=== PATIENT | male | born 1975 | race Caucasian/White ===

== ENCOUNTER 2021-04-27 09:45 | Emergency (ER) | payer OTHER, SELFPAY ==
[2021-04-27 09:46] VITALS: BP 148/97; PULSE 74; RESP 20; TEMP 36.9; O2SAT 99; BMI 29.0
--- NOTE | 2021-04-27 09:56 | CT_ITS ---
STUDY: CT BRAIN WITHOUT CONTRAST REASON FOR EXAM: Male, 46 years old. Head injury with laceration to the right side. Loss of consciousness. RADIATION DOSAGE (If Supplied By Facility): CTDIvol = ( 44.99 ) mGy, DLP = ( 796.11 ) mGycm TECHNIQUE: Transaxial CT imaging of the brain was performed without administration of intravenous contrast material. Individualized dose optimization techniques were used for this CT. COMPARISON: No relevant priors. FINDINGS: Scalp hematoma overlying the right parietal bone. Normal calvarium. Normal size ventricles and extra-axial spaces for the patient''s age. Normal white matter tracts of the cerebral hemispheres. Normal basal ganglia and thalami. Normal brainstem. Normal cerebellum. There is no intracranial hemorrhage. There are no findings of an acute ischemic infarction. Small air-fluid level in the right maxillary sinus. Partial opacification of the ethmoid sinus and the left sphenoid sinus. CT/Brain/Head without Contrast IMPRESSION: Scalp hematoma overlying the right parietal bone. Sinusitis. Electronically Signed: Daniel Valle MD at 10:34 EST , Service support ,
--- NOTE | 2021-04-27 09:57 | EX.ED.GENINJ ---
HPI History of Present Illness Chief Complaint: Head Injury Detail of Chief Complaint: That occurred approximately 7:10 AM Informant: patient Narrative Narrative: Patient presents to the emergency department via EMS with a head injury that occurred about 7:10 AM. Patient states that he was working under a semitrailer and when he was coming from underneath the trailer he raised up too quickly and struck his head on the edge of the trailer causing a laceration and thinks that he may have been knocked out for few seconds. Patient complaining of a little bit of blurry vision and nausea and headache. Patient unsure of his last tetanus shot. This is a [employer]. injury. He denies any neck pain. [facility] Medical History (Updated 04/27/21 @ 11:[address] Baldo Lerma DO) ACL tear Rotator cuff arthropathy Medical History no medical history Home Medications NK 04/27/21 [History Last Taken Unknown] Allergy/AdvReac Type Severity Reaction Status Date / Time No Known Allergies Allergy Verified 04/27/21 09:53 Social History Smoking Status: Current every day smoker tobacco type: cigarettes ROS ROS ED Constitutional Constitutional ED: Reports systems reviewed and no addt'l complaints, except as documented; Denies body ache(s), change in weight or chills Eyes Eyes: Reports blurry vision; Denies acute decrease in peripheral vision, change in vision, double vision or loss of vision ENT ENT ED: Reports none; Denies ear pain, lip swelling, loss taste/smell, neck pain, otalgia or sore throat Cardiovascular Cardiovascular: Reports none; Denies abdominal pain, chest pain with activity, leg edema, lightheadedness, palpitations, rapid heart rate or syncope Respiratory/Chest Respiratory/Chest: Reports none; Denies change in mental status, dry cough, dyspnea, hemoptysis, shortness of breath at rest or shortness of breath with exertion Gastrointestinal Gastrointestinal: Reports none and nausea; Denies abdominal pain, change in stool character, diarrhea, hematemesis, hematochezia, melena, rectal bleeding or vomiting Genitourinary Genitourinary ED: Reports none; Denies abdominal discomfort, anuria, dysuria, genital pain or polyuria Musculoskeletal Musculoskeletal: Reports none; Denies arthralgias, back pain, difficulty walking, extremity pain, muscle weakness or myalgias Integumentary Reports none; Denies abscess or rash Neurologic Neurologic: Reports none and headache(s); Denies abnormal gait, confusion, focal weakness, frequent falls, loss of vision, numbness, paresthesias, radicular pain, vertigo or weakness Psychiatric Psychiatric: Reports systems reviewed and no addt'l complaints, except as documented and none; Denies behavioral changes, confusion, difficulty concentrating, hallucinations, suicidal ideation, tactile hallucinations or visual hallucinations Endocrine Endocrinology: Denies none, cold intolerance, excessive sweating, fatigue or heat intolerance Hematologic/Lymphatic Hematologic/Lymphatic: Reports none; Denies anemia, easy bleeding or easy bruising Allergic/Immunologic Allergic/Immunologic ED: Denies as per HPI, none, lip swelling, mouth swelling, throat swelling, tongue swelling or hives EXAM Physical Exam Const Vital Signs: 04/27/21 09:46 04/27/21 09:50 Temperature 98.4 F Temperature Source Oral Pulse Rate 74 Respiratory Rate 20 H Respiratory Effort Normal Non-Labored Blood Pressure 148/97 H Blood Pressure Mean 114 Pulse Ox 99 Oxygen Delivery Method Room Air Room Air Positive well nourished and well developed General Appearance ED: well developed and NAD HEENT Reports TM's clear and moist mucous membranes HEENT Narrative: 3.5 cm laceration right parietal scalp. No bony depressions noted. No hemotympanum noted. Pupils equal reactive to light bilaterally with normal extraocular muscle movements normocephalic; Negative for trauma or tenderness Tympanic Membrane ED: Yes TM's clear Eyes PERRL and EOMs intact bilaterally General Eye ED: Negative for pale conjunctiva or scleral icterus Neck no lymphadenopathy, supple and no JVD General: Negative for tenderness Chest Wall inspection of chest normal and palpation of chest normal Chest: Negative for tenderness Resp normal respiratory effort and clear to auscultation bilaterally Effort and Inspection: Negative for respiratory distress or pain with movement Auscultation: Negative for rhonchi, wheezes or diminished lung sounds Cardio regular rate, regular rhythm, S1 normal heart sound, S2 normal heart sound and no murmurs Peripheral Pulses: pulses 2+ throughout GI normal to inspection, nondistended, normoactive bowel sounds, soft to palpation, non-tender, non-distended and no masses Back/Spine no CVA tenderness and no thoracic nor lumbar tenderness Extremity normal to inspection General Extremety ED: Negative for edema General Extremity: Negative for edema Neuro oriented x3, CN's II-XII intact bilaterally, no sensory deficits noted and gait normal Sensorium / Orientation: awake, alert, oriented to person, oriented to place and oriented to time Motor Exam: strength 5/5 throughout and strength abnormal Psych mental status grossly normal Skin no rashes or lesions noted and no wounds PROC Procedures Lacerations Scalp laceration: Length: 5 ft Depth: Sub Q Shape: Linear Prep: Sterile Conditions Laceration repair: Irrigated, Lidocaine, Lidocaine with epi and Local Irrigated (ml): 100 Number of Sutures/[place]: 5 Suture Information: Ethilon, Simple and 4-0 MDM MDM MDM Narrative Medical decision making narrative: CT scan of the brain without contrast showed a scalp hematoma but no skull fractures or intracranial hemorrhage. Patient had laceration repair. Patient advised to return to the emergency department if increased pain, redness, swelling, purulent drainage, or condition worsen anyway. I suspect patient likely has concussion. 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 Radiography Diagnostic Testing: Clinical Impression(s) from Imaging Studies Brain CT 04/27/21 09:56 IMPRESSION: Scalp hematoma overlying the right parietal bone. Sinusitis. Electronically Signed: Daniel Valle MD at 10:34 EST , Service support , Discharge Plan Triage Chief Complaint: Head Injury ED Provider: Baldo Lerma Dx/Rx/DC Orders Clinical Impression: Concussion, Laceration of scalp Instructions: ED Concussion, ED Laceration Scalp Stitches or [place] Prescriptions: No Action NK RF: 0 Referrals: Miladys Salcedo [Other] Corporate,[facility] [GROUP OF PHYSICIANS] - 3-5 Days Activity Restrictions/Additional Instructions: Sutures to be removed in 10 days Disposition Disposition: Home, Self Care
[2021-04-27] MEDS: Diphth,Pertuss(Acell),Tet Vac 0.5 ML Vial IM (10:30)
[2021-04-27] MEDS: Acetaminophen 325 MG Tablet 650 MG PO (10:42)
[2021-04-27] MEDS: Lidocaine 1% /Epi 1:100 (20ml) 20 ML Vial 6 ML INFILT (11:24)
== END 2021-04-27 11:49 | disposition home or self-care (01) ==
PROVIDERS: Emergency Provider Emergency Medicine; Visit Provider Emergency Medicine
DX: S01.01XA Laceration without foreign body of scalp, initial encounter (principal); S06.0X0A Concussion without loss of consciousness, initial encounter; F17.210 Nicotine dependence, cigarettes, uncomplicated; X58.XXXA Exposure to other specified factors, initial encounter
CPT/HCPCS: 12002; 70450; 90715; 96372; 99284